=== PATIENT | female | born 1975 | race Caucasian/White ===

== ENCOUNTER → 2017-01-27 | Outpatient (CLI) | payer BC ==
--- NOTE | 2017-01-27 11:59 | MR ---
MRI brain with and without contrast HISTORY: Brain tumor, cerebral aneurysm Multiplanar multisequence and postcontrast imaging through the brain following 15 cc MultiHance. Exam correlated to prior brain CT dated 25 October 2016 There is no restricted diffusion. There are scattered hyperintensities on inversion recovery and T2-w eighted sequences within the deep white matter, approximately 5 lesions. There is no hemorrhage or hy drocephalus. No abnormal enhancement following contrast administration. The cerebellopontine angles, corpus callosum, pituitary, cervical medullary junction are normal. The orbits show symmetric appeara nce. Inflammatory change present in the right maxillary sinus and ethmoid air cells. IMPRESSION: Nonspecific foci of demyelination questionable clinical significance. Sinus disease. No a cute brain abnormalities evident.
== END ==
LOC: RADMRIMAIN 10:35
PROVIDERS: ATTEND Psychiatry & Neurology Neurology
DX: J32.9 Chronic sinusitis, unspecified (principal); G37.9 Demyelinating disease of central nervous system, unspecified; C71.0 Malignant neoplasm of cerebrum, except lobes and ventricles; I67.1 Cerebral aneurysm, nonruptured
CPT/HCPCS: 70553; A9577

== ENCOUNTER → 2023-09-10 | Outpatient (CLI) | payer OTHER ==
[2023-09-10 15:59] LABS: ALT 13 U/L (8-44); AST 15 U/L (13-35); Albumin 3.7 d/dL (3.8-4.9); Albumin/Globulin Ratio 2.18 Ratio (1.60-3.17); Alkaline Phosphatase 44 U/L (41-126); BUN/Creat Ratio 18.33 Ratio (12.00-20.00); Calcium 8.5 mg/dL (8.7-10.3); Carbon Dioxide 26.8 mmol/L (21.6-31.8); Chloride 104 mmol/L (96-109); Globulin 1.7 d/dL (1.6-3.3); Glucose 102 mg/dL (70-110); Potassium 4.1 mmol/L (3.5-5.5); Sodium 140 mmol/L (135-145); Total Bilirubin 0.3 mg/dL (0.3-1.2); Total Protein 5.4 d/dL (6.2-8.2)
[2023-09-10 16:04] LABS: Basophils # (A) 0.09 X 10*3/uL (0.00-0.10); Eosinophils # (A) 0.33 X 10*3/uL (0.04-0.35); Eosinophils % (A) 3.6 %; HCT 43.2 % (37.2-46.3); HGB 13.9 d/dL (12.0-15.0); Lymphocytes # (A) 1.44 X 10*3/uL (0.90-5.00); Lymphocytes % (A) 15.8 %; MCH 29.3 pg (27.0-32.0); MCHC 32.2 d/dL (32.0-37.0); MCV 91.1 FL (80.0-97.0); Mean Platelet Volume 10.9 FL (9.5-12.2); Monocytes # (A) 0.45 X 10*3/uL (0.20-1.00); Monocytes % (A) 4.9 %; NRBC Per 100 WBC 0 X 10*3/uL (0.00-0.01); Neutrophils # (A) 6.79 X 10*3/uL (1.80-7.70); Neutrophils % (A) 74.3 %; Platelet Count 216 X 10*3/uL (140-440); RBC 4.74 X 10*6/uL (4.10-5.20); RDW 13.2 % (11.5-14.5); WBC 9.14 X 10*3/uL (4.50-10.00)
[2023-09-10 17:02] LABS: Erythrocyte Sedimentation Rate 6 mm/Hr (0-20)
== END | disposition home or self-care (01) ==
LOC: LABWHC1 10:25
PROVIDERS: ATTEND Internal Medicine Gastroenterology
DX: K51.20 Ulcerative (chronic) proctitis without complications (principal)
CPT/HCPCS: 36415; 80053; 83993; 85025; 85652; 86140

== ENCOUNTER 2023-11-03 05:35 | Day surgery (SDC) | payer OTHER ==
[2023-10-29 13:27] VITALS: BMI 22.4
[2023-11-03] MEDS ORDERED: LIDOCAINE 1% (10MG/ML) FOR IV START INTRADERMA PRN (05:44)
[2023-11-03] MEDS ORDERED: LACTATED RINGERS 1,000 ML IV SCH (05:44)
[2023-11-03 06:19] VITALS: RESP 18; TEMP 98.5
[2023-11-03] MEDS ORDERED: PROPOFOL 10 MG/ML 20 ML VIAL IV ONE (06:33)
[2023-11-03] MEDS ORDERED: IV FLUID CONTINUATION 1,000 ML IV ONE (06:50)
--- NOTE | 2023-11-03 07:10 | P.PCN ---
Date of Procedure: 11/03/23 Procedure(s) Performed: BRIEF HISTORY: Patient is a 48-year-old pleasant white female scheduled for an elective colonoscopy as a part of evaluation of severe diarrhea and rectal bleeding for the last 1 month duration. She has 15-20 bowel movements daily with blood or mucus in the stool. She stated that she was diagnosed with ulcerative proctitis 3 years ago and has been maintained on mesalamine suppositories once at bedtime. She started having rectal bleeding and diarrhea of month ago 2 weeks ago because of severe bloody diarrhea she was admitted to [facility] and according to the patient she had a CAT scan was told she has severe colitis and treated with antibiotics and discharged him. Her symptoms gradually improved. She continues to have 10-12 bowel movements any blood or mucus in the stool. PROCEDURE PERFORMED: Colonoscopy with random biopsies. PREOPERATIVE DIAGNOSIS: History of ulcerative proctitis/now with severe rectal bleeding and diarrhea of 1 month duration. IV sedation per Anesthesia. PROCEDURE: After informed consent was obtained, the patient, was brought into the endoscopy unit. IV sedation was administered by Anesthesia under continuous monitoring. Digital rectal examination was normal. Initially the Olympus CF-160 flexible video colonoscope was then inserted in the rectum, gradually advanced into the cecum without any difficulty. Careful examination was performed as the scope was gradually being withdrawn. Ileocecal valve and the appendiceal orifice were visualized and appeared normal. Prep was fair. Mucosa of the cecum, ascending colon, transverse colon, descending colon, sigmoid colon, and rectum had diffuse severe colitis with mucosal erythema, friability, granularity, spontaneous bleeding and ulcerations and multiple biopsies were done from cecum to rectum. The rectum revealed pseudopolyps identified the largest measuring 1 c m in size which was biopsied.. Retroflexion was performed in the rectum and no lesions were seen. The patient tolerated the procedure well. IMPRESSION: Severe pancolitis involving the entire colon with mucosal erythema, friability, granularity and edema of the mucosa and spontaneous bleeding consistent with severe ulcerative colitis status post multiple biopsies Rectal pseudopolyps RECOMMENDATIONS: Findings of this examination were discussed with the patient as well as a family. She was advised to follow with the biopsy results. She'll be started on prednisone 40 mg daily and she'll be seen in office in one week. She was advised to go to the emergency room he has worsening symptoms..
[2023-11-03 07:33] VITALS: BP 130/80; PULSE 87
== END 2023-11-03 07:43 | disposition home or self-care (01) ==
LOC: ORWHC2ENDO 05:35
PROVIDERS: ATTEND Internal Medicine Gastroenterology
DX: K62.1 Rectal polyp (principal); K62.5 Hemorrhage of anus and rectum; K51.20 Ulcerative (chronic) proctitis without complications; K52.9 Noninfective gastroenteritis and colitis, unspecified; J45.909 Unspecified asthma, uncomplicated; F12.90 Cannabis use, unspecified, uncomplicated; K21.9 Gastro-esophageal reflux disease without esophagitis; Z98.890 Other specified postprocedural states; Z79.899 Other long term (current) drug therapy
CPT/HCPCS: 81025; 45380; J2704; 88305

== ENCOUNTER → 2023-11-10 | Outpatient (CLI) | payer OTHER ==
[2023-11-10 15:15] LABS: Basophils # (A) 0.09 X 10*3/uL (0.00-0.10); Basophils % (A) 0.7 %; Eosinophils # (A) 0.04 X 10*3/uL (0.04-0.35); Eosinophils % (A) 0.3 %; HCT 35.7 % (37.2-46.3); HGB 10.8 g/dL (12.0-15.0); Lymphocytes # (A) 0.97 X 10*3/uL (0.90-5.00); MCH 28.3 pg (27.0-32.0); MCHC 30.3 g/dL (32.0-37.0); MCV 93.5 FL (80.0-97.0); Monocytes # (A) 0.15 X 10*3/uL (0.20-1.00); Monocytes % (A) 1.1 %; NRBC Per 100 WBC 0.02 X 10*3/uL (0.00-0.01); Neutrophils # (A) 12.14 X 10*3/uL (1.80-7.70); Neutrophils % (A) 87.7 %; Platelet Count 548 X 10*3/uL (140-440); RBC 3.82 X 10*6/uL (4.10-5.20); RDW 16.9 % (11.5-14.5); WBC 13.83 X 10*3/uL (4.50-10.00)
[2023-11-10 15:19] LABS: ALT 9 U/L (8-44); AST 14 U/L (13-35); Albumin 4.1 g/dL (3.8-4.9); Albumin/Globulin Ratio 1.46 Ratio (1.60-3.17); Alkaline Phosphatase 53 U/L (41-126); BUN/Creat Ratio 11.67 Ratio (12.00-20.00); Calcium 9.6 mg/dL (8.7-10.3); Carbon Dioxide 23.1 mmol/L (21.6-31.8); Chloride 102 mmol/L (96-109); Globulin 2.8 g/dL (1.6-3.3); Glucose 102 mg/dL (70-110); Potassium 4.7 mmol/L (3.5-5.5); Sodium 138 mmol/L (135-145); Total Bilirubin 0.3 mg/dL (0.3-1.2); Total Protein 6.9 g/dL (6.2-8.2)
== END | disposition home or self-care (01) ==
LOC: LABWHC1 10:33
PROVIDERS: ATTEND Nurse Practitioner Family
DX: K51.20 Ulcerative (chronic) proctitis without complications (principal)
CPT/HCPCS: 36415; 80053; 85025

== ENCOUNTER → 2024-04-13 | Outpatient (CLI) | payer OTHER ==
[2024-04-13 19:29] LABS: ALT 20 U/L (8-44); AST 18 U/L (13-35); Albumin 3.9 g/dL (3.8-4.9); Albumin/Globulin Ratio 2.79 Ratio (1.60-3.17); Alkaline Phosphatase 35 U/L (41-126); BUN/Creat Ratio 15.57 Ratio (12.00-20.00); Blood Urea Nitrogen 10.9 mg/dL (9.0-27.0); C Reactive Protein <0.30 mg/dL (0.00-0.80); Calcium 8.7 mg/dL (8.7-10.3); Carbon Dioxide 25.6 mmol/L (21.6-31.8); Chloride 106 mmol/L (96-109); Globulin 1.4 g/dL (1.6-3.3); Glucose 101 mg/dL (70-110); Potassium 4.5 mmol/L (3.5-5.5); Sodium 143 mmol/L (135-145); Total Bilirubin <0.2 mg/dL (0.3-1.2); Total Protein 5.3 g/dL (6.2-8.2)
[2024-04-13 19:49] LABS: Basophils # (A) 0.05 X 10*3/uL (0.00-0.10); Basophils % (A) 0.4 %; Eosinophils # (A) 0.02 X 10*3/uL (0.04-0.35); Eosinophils % (A) 0.1 %; HCT 50.7 % (37.2-46.3); Lymphocytes # (A) 1.17 X 10*3/uL (0.90-5.00); Lymphocytes % (A) 8.4 %; MCH 29.5 pg (27.0-32.0); MCHC 31.6 g/dL (32.0-37.0); MCV 93.5 FL (80.0-97.0); Mean Platelet Volume 10.6 FL (9.5-12.2); Monocytes # (A) 0.23 X 10*3/uL (0.20-1.00); Monocytes % (A) 1.6 %; NRBC Per 100 WBC 0 X 10*3/uL (0.00-0.01); Neutrophils # (A) 12.43 X 10*3/uL (1.80-7.70); Neutrophils % (A) 88.9 %; Platelet Count 309 X 10*3/uL (140-440); RBC 5.42 X 10*6/uL (4.10-5.20); RDW 15.6 % (11.5-14.5); WBC 13.99 X 10*3/uL (4.50-10.00)
[2024-04-13 20:24] LABS: Erythrocyte Sedimentation Rate <1 mm/Hr (0-20)
== END | disposition home or self-care (01) ==
LOC: LABWHC1 13:13
PROVIDERS: ATTEND Internal Medicine Gastroenterology
DX: K51.90 Ulcerative colitis, unspecified, without complications (principal)
CPT/HCPCS: 36415; 80053; 83993; 85025; 85652; 86140

== ENCOUNTER → 2024-11-14 | Outpatient (CLI) | payer OTHER ==
[2024-11-14 18:32] LABS: Basophils # (A) 0.06 X 10*3/uL (0.00-0.10); Basophils % (A) 0.8 %; Eosinophils # (A) 0.15 X 10*3/uL (0.04-0.35); Eosinophils % (A) 1.9 %; HCT 47.5 % (37.2-46.3); HGB 15.8 g/dL (12.0-15.0); Lymphocytes % (A) 27.2 %; MCH 30.2 pg (27.0-32.0); MCHC 33.3 g/dL (32.0-37.0); MCV 90.8 FL (80.0-97.0); Mean Platelet Volume 10.8 FL (9.5-12.2); Monocytes # (A) 0.51 X 10*3/uL (0.20-1.00); Monocytes % (A) 6.6 %; NRBC Per 100 WBC 0 X 10*3/uL (0.00-0.01); Neutrophils # (A) 4.83 X 10*3/uL (1.80-7.70); Neutrophils % (A) 62.7 %; Platelet Count 292 X 10*3/uL (140-440); RBC 5.23 X 10*6/uL (4.10-5.20); RDW 12.8 % (11.5-14.5); WBC 7.71 X 10*3/uL (4.50-10.00)
[2024-11-14 19:14] LABS: BUN/Creat Ratio 26.67 Ratio (12.00-20.00); C Reactive Protein <0.30 mg/dL (0.00-0.80); Chloride 102 mmol/L (96-109); Glucose 132 mg/dL (70-110); Potassium 4.2 mmol/L (3.5-5.5); Sodium 138 mmol/L (135-145)
[2024-11-14 19:15] LABS: ALT 20 U/L (8-44); AST 16 U/L (13-35); Albumin 3.9 g/dL (3.8-4.9); Albumin/Globulin Ratio 2.29 Ratio (1.60-3.17); Alkaline Phosphatase 52 U/L (41-126); Calcium 8.9 mg/dL (8.7-10.3); Carbon Dioxide 23.6 mmol/L (21.6-31.8); Globulin 1.7 g/dL (1.6-3.3); Total Bilirubin <0.2 mg/dL (0.3-1.2); Total Protein 5.6 g/dL (6.2-8.2)
== END | disposition home or self-care (01) ==
LOC: LABWHC1 15:20
PROVIDERS: ATTEND Internal Medicine Gastroenterology
DX: K51.90 Ulcerative colitis, unspecified, without complications (principal)
CPT/HCPCS: 36415; 80053; 85025; 86140

== ENCOUNTER 2024-11-28 10:21 | Day surgery (SDC) | payer OTHER ==
[2024-11-24 16:13] VITALS: BMI 25.7
[~2024-11-28 10:21] MED LIST: LIDOCAINE 1% (10MG/ML) FOR IV START INTRADERMA PRN
[2024-11-28 11:42] VITALS: TEMP 97.8
[2024-11-28 11:49] LABS: Glucose,Whole Blood 93 mg/dL (70-110)
[2024-11-28] MEDS: LACTATED RINGERS 1,000 ML IV SCH (11:49)
[2024-11-28] MEDS: IV FLUID CONTINUATION 1,000 ML IV ONE ×2 (11:49→12:31)
[2024-11-28] MEDS ORDERED: PROPOFOL 10 MG/ML 20 ML VIAL IV ONE (12:37)
--- NOTE | 2024-11-28 12:49 | P.PCN ---
Date of Procedure: 11/28/24 Procedure(s) Performed: BRIEF HISTORY: Patient is a 49-year-old pleasant right male scheduled for an elective colonoscopy as a part of evaluation of ulcerative proctitis diagnosed in 2018 and ulcerative pancolitis diagnosed in October 2023. She was steroid dependent for several months since October 2023 to May 2024 and was started on Inflectra in February 2024. She appears to have significantly improved but she still has 6-7 loose watery bowel movements daily but no blood in the stool. She is scheduled for a colonoscopy to evaluate further PROCEDURE PERFORMED: Colonoscopy with biopsy and snare polypectomy. PREOPERATIVE DIAGNOSIS: Chronic diarrhea and history of ulcerative colitis. IV sedation per Anesthesia. PROCEDURE: After informed consent was obtained, the patient, was brought into the endoscopy unit. IV sedation was administered by Anesthesia under continuous monitoring. Digital rectal examination was normal. Initially the Olympus CF-160 flexible video colonoscope was then inserted in the rectum, gradually advanced into the cecum without any difficulty. Careful examination was performed as the scope was gradually being withdrawn. Ileocecal valve and the appendiceal orifice were visualized and appeared normal. Prep was excellent. Mucosa of the cecum, ascending colon appeared normal. There is some scar tissue with scattered pseudopolyps noted in the transverse colon and the descending colon. Sigmoid colon and rectum appeared normal. Random biopsies were done from cecum to rectum at every 10 cm intervals. In the proximal rectum there was a 1 cm polyp that was removed by snare polypectomy.. Mucosa of the descending colon, sigmoid colon and rectum appeared normal. Retroflexion was performed in the rectum and no lesions were seen. The patient tolerated the procedure well. IMPRESSION: Scarring of the mucosa scattered pseudopolyps noted in the transverse colon colon, descending colon and sigmoid colon consistent with quiescent colitis but no evidence of active colitis 1 cm proximal rectal polyp status post snare polypectomy RECOMMENDATIONS: Findings of this examination were discussed with the patient as well as her family. She was advised to follow-up with the biopsy results. She will be seen in the office in 3 to 4 weeks.. Continue with Inflectra infusions every 8 weeks.
[2024-11-28 12:57] VITALS: RESP 16
[2024-11-28 13:12] VITALS: BP 114/79; PULSE 66
== END 2024-11-28 13:34 | disposition home or self-care (01) ==
LOC: ORWHC2ENDO 10:21
PROVIDERS: ATTEND Internal Medicine Gastroenterology
DX: K51.90 Ulcerative colitis, unspecified, without complications (principal); K51.40 Inflammatory polyps of colon without complications; K62.1 Rectal polyp; Z79.52 Long term (current) use of systemic steroids
CPT/HCPCS: 81025; 88305; 45380; 45385; J2704